=== PATIENT | male | born 1965 | race African-American/Black ===

== ENCOUNTER 2020-01-31 21:39 | Emergency (ER) | payer OTHER, MEDICAID ==
[~2020-01-31] VITALS: Ht 167.6 cm; Wt 127.0 kg
[2020-01-31] MEDS ORDERED: NORVASC 2.5 MG2.5 M1 PO (22:15)
[2020-01-31] MEDS ORDERED: ASA81BEC PO (22:15)
[2020-01-31] MEDS ORDERED: CARVEDILOL25 MG PO (22:15)
[2020-01-31] MEDS ORDERED: LIPITOR40 MG PO (22:16)
[2020-01-31] MEDS ORDERED: TOPROL XL25 MG PO (22:16)
[2020-01-31] MEDS ORDERED: COZAAR 25 MG TA25 M2 PO (22:16)
[2020-01-31] MEDS ORDERED: LANTUS SUBQ (22:16)
[2020-01-31] MEDS ORDERED: NOVOLOG100 UNIT/1 SUBQ (22:16)
[2020-01-31 23:21] LABS: ABSOLUTE BASOPHILS 0.1 thou/uL (0.0-0.2); ABSOLUTE EOSINOPHILS 0.2 thou/uL (0.0-0.7); ABSOLUTE LYMPHOCYTES 1.4 thou/uL (0.8-5.3); ABSOLUTE MONOCYTES 0.6 thou/uL (0.0-1.2); ABSOLUTE NEUTROPHILS 3.7 thou/uL (1.6-8.1); BASOPHILS 1.1 %; EOSINOPHILS 3.2 %; HEMATOCRIT 39.4 % (42.0-52.0); HEMOGLOBIN 13.5 gm/dL (14.0-18.0); LYMPHOCYTES 23.8 %; MCH 28.9 pg (26.0-34.0); MCHC 34.3 g/dL (28.0-37.0); MCV 84.3 fL (80.0-100.0); MONOCYTES 9.7 %; MPV 9.2 fl. (7.2-11.1); NUCLEATED RBCS 0 /100WBC; PLATELET COUNT* 286 thou/uL (150-400); POLYS 62.2 %; RBC 4.67 mil/uL (4.50-6.00); RDW-CV 16.2 % (10.5-14.5); WBC 5.9 thou/uL (4.0-11.0)
[2020-01-31 23:29] LABS: CALCIUM 8.6 mg/dL (8.5-10.1); CREATININE 5.1 mg/dL (0.6-1.3); POTASSIUM 4.9 mmol/L (3.5-5.1)
[2020-01-31 23:31] LABS: APTT 25.3 Seconds (25.0-31.3); PROTIME 10.6 Seconds (9.20-11.50)
[2020-01-31 23:34] LABS: ALBUMIN 3.8 g/dL (3.4-5.0)
[2020-02-01] MEDS ORDERED: KEFLEX500 M1 PO (00:14)
[2020-02-01 00:27] VITALS: BP 166/99
[2020-02-01 00:38] LABS: TOTAL BILIRUBIN 0.5 mg/dL (<0.1-1.0); TOTAL PROTEIN 7.2 g/dL (6.4-8.2)
== END 2020-02-01 00:27 | disposition home or self-care (01) ==
LOC: M.ERS 21:39
PROVIDERS: Personal Emergency Response Attendant
DX: S80.812A Abrasion, left lower leg, initial encounter (principal); E11.22 Type 2 diabetes mellitus with diabetic chronic kidney disease; N18.9 Chronic kidney disease, unspecified; Z79.82 Long term (current) use of aspirin; Z79.4 Long term (current) use of insulin; Z79.899 Other long term (current) drug therapy; X58.XXXA Exposure to other specified factors, initial encounter; Y93.89 Activity, other specified; Y92.89 Other specified places as the place of occurrence of the external cause; Y99.8 Other external cause status